=== PATIENT | female | born 1990 | race Caucasian/White ===

== ENCOUNTER 2017-10-03 12:17 | Emergency (ER) | payer OTHER ==
[~2017-10-03] VITALS: Ht 154.9 cm; Wt 72.6 kg
[2017-10-03 12:40] VITALS: BP 109/62; Ht 154.9 cm; Wt 72.6 kg
== END 2017-10-03 16:20 | disposition home or self-care (01) ==
LOC: ED 12:17
DX: S93.601A Unspecified sprain of right foot, initial encounter (principal); W10.9XXA Fall (on) (from) unspecified stairs and steps, initial encounter; Y93.89 Activity, other specified; Y92.89 Other specified places as the place of occurrence of the external cause; Y99.8 Other external cause status